=== PATIENT | female | born 1970 | race Caucasian/White ===

== ENCOUNTER 2020-09-29 08:53 | Outpatient (CLI) | payer BC | END 2020-09-29 08:54 | disposition home or self-care (01) | LOC: BICMAMMO 08:53 | PROVIDERS: ATTEND Physician Assistant | DX: R92.8 Other abnormal and inconclusive findings on diagnostic imaging of breast (principal); N63.12 Unspecified lump in the right breast, upper inner quadrant | CPT/HCPCS: G0279 ==